=== PATIENT | female | born 1965 | race Caucasian/White ===

== ENCOUNTER 2019-07-31 09:40 | Emergency (ER) | payer MEDICARE, MEDICAID ==
[2019-07-31 10:40] VITALS: BP 104/53
--- NOTE | 2019-07-31 11:02 | UC ---
Skin Complaint HPI - HPI Summary HPI Summary: Pt is accompanied by health care coach from [facility]. Caregiver states that pt began new medication Azathioprine, just a few weeks ago and health care coach reports that pt hasa "rash or flushing" to facial cheeks after taking medication that resolves within a couple of hours. Pt does not appear to be in any distress post taking medication and denies itchiness, difficulty swallowing or breathing. At time of PE pt did not have a rash. - History of Current Complaint Chief Complaint: UCRash Time Seen by Provider: 07/31/19 10:35 Stated Complaint: RASH Hx Obtained From: Family/Mds Rn Hx From Patient Unobtainable Due To: Other - cognitive delays ?: No Onset/Duration: Sudden Onset, Lasting Minutes, Resolved - at time of PE Skin Exposure Onset/Duration: Hours Ago Timing: Intermittent Episodes Lasting: - hours Onset Severity: Moderate Current Severity: None Pain Intensity: 0 Location: Face Character: Redness Aggravating Factor(s): Nothing Alleviating Factor(s): Unknown Associated Signs & Symptoms: Positive: Rash Related History: Recent change in medication - Allergy/Home Medications Allergies/Adverse Reactions: Allergies Allergy/AdvReac Type Severity Reaction Status Date / Time BAND-AIDS Allergy RED/RASH Uncoded 07/31/19 10:15 Home Medications: Home Medications Atorvastatin* [Lipitor*] 10 mg PO 07/31/19 [History] Bismuth Subsalicylate [Pepto-Bismol] 2 tab PO BID 07/31/19 [History Confirmed ] Calcium Carbonate/Vitamin D3 [Calcium 500 + Vit D Caplet] 1 each PO 07/31/19 [ History] Cyanocobalamin TAB* [Vitamin B12 TAB*] 250 mcg PO DAILY 07/31/19 [History Confirmed 07/31/19] FLUoxetine CAP* [PROzac CAP*] 40 mg PO DAILY 07/31/19 [History Confirmed ] Loratadine 10 mg PO DAILY 07/31/19 [History Confirmed 07/31/19] Multivitamin [Multivitamins] 1 cap PO DAILY 07/31/19 [History Confirmed 07/31/19 ] Propylene Glycol/Peg 400/Pf [Systane Ultra 0.4-0.3% Eye Drp] 1 drop BOTH EYES TID 07/31/19 [History Confirmed 07/31/19] Ubidecarenone [Coq10] 100 mg PO DAILY 07/31/19 [History Confirmed 07/31/19] azaTHIOprine [Azathioprine] 50 mg PO DAILY 07/31/19 [History Confirmed 07/31/19] PMH/Surg Hx/FS Hx/Imm Hx Previously Healthy: Yes - Surgical History Surgical History: Yes Surgery Procedure, Year, and Place: HERNIA REPAIR X2; EAR TUBES - Family History Known Family History: Positive: Cardiac Disease - Social History Occupation: Disabled Lives: [facility] Alcohol Use: None Substance Use Type: None Smoking Status (MU): Never Smoked Tobacco Have You Smoked in the Last Year: No - Immunization History Vaccination Up to Date: Yes Review of Systems All Other Systems Reviewed And Are Negative: Yes Constitutional: Positive: Negative Skin: Positive: Rash - that has resolved prior to arrival at Eyes: Positive: Negative ENT: Positive: Negative Respiratory: Positive: Negative Cardiovascular: Positive: Negative Gastrointestinal: Positive: Negative Genitourinary: Positive: Negative Motor: Positive: Negative Neurovascular: Positive: Negative Musculoskeletal: Positive: Negative Neurological: Positive: Negative Psychological: Positive: Negative Is Patient Immunocompromised?: No Physical Exam Triage Information Reviewed: Yes Appearance: Well-Appearing Vital Signs: Initial Vital Signs Temp 98.2 F 07/31/19 10:28 Pulse 84 07/31/19 10:28 Resp 16 07/31/19 10:28 BP 104/53 07/31/19 10:28 Pulse Ox 100 07/31/19 10:28 Vital Signs Reviewed: Yes Eye Exam: Other - wears glasses ENT Exam: Other - wears hearing aids Dental Exam: Normal Neck exam: Normal Respiratory: Positive: Normal breath sounds Cardiovascular Exam: Normal Musculoskeletal Exam: Normal - at baseline Neurological Exam: Normal Psychological Exam: Normal Skin Exam: Normal - no rash at time of PE Course/Dx - Course Course Of Treatment: I discussed with the caregiver the need to follow up with the provider who prescribed the medication as soon as possible. Additionally, I discussed with the caregiver that if symptoms worsened the need to discontinue medication and seek medical care. - Differential Diagnoses - Skin Complaint Differential Diagnoses: Drug Rash - Diagnoses Provider Diagnosis: Drug rash Discharge ED - Sign-Out/Discharge Documenting (check all that apply): Patient Departure All imaging exams completed and their final reports reviewed: No Studies - Discharge Plan Condition: Stable Disposition: HOME Patient Education Materials: Acute Rash (ED), General Allergic Reaction (ED) Referrals: Leatha Martínez MD [Primary Care Provider] - If Needed Additional Instructions: Please follow up with Dr. Vilchis and/or your PCP as needed. It is possible that your complaint of rash is related to the medications you are taking. If your symptoms worsen,please discontinue using the medication and seek care immediately at the closest emergency room. - Billing Disposition and Condition Condition: STABLE Disposition: Home
== END 2019-07-31 11:12 | disposition home or self-care (01) ==
LOC: UCCORT 09:40
DX: L27.0 Generalized skin eruption due to drugs and medicaments taken internally (principal); T45.1X5A Adverse effect of antineoplastic and immunosuppressive drugs, initial encounter; Y92.9 Unspecified place or not applicable; Z91.09 Other allergy status, other than to drugs and biological substances
CPT/HCPCS: 99211; G0463